=== PATIENT | female | born 1950 | race Two or more races ===

== ENCOUNTER 2020-03-02 02:48 | Emergency (ER) | payer MEDICAID, MEDICARE, OTHER ==
[~2020-03-02] VITALS: Ht 160 cm; Wt 68.0 kg
[~2020-03-02 02:48] MED LIST: CYCL5TAB PO; ENAL5TAB PO; EST0625T PO; HYDR25TA4 PO; IBUP600T27 PO; METF-370 PO; METO25TA93 PO; NOR10T PO; SERT-160 PO
[2020-03-02 03:41] LABS: Basophils # (auto) 0 10 ^3/uL (0-0.2); Basophils % (auto) 0.4 % (0.0-2.0); Eosinophils # (auto) 0.2 10 ^3/uL (0-0.8); Eosinophils % (auto) 2.3 % (0.0-7.0); Hematocrit 38.3 % (36.0-46.0); Hemoglobin 13.1 g/dL (12.2-16.2); Lymphocytes # (auto) 3.1 10 ^3/uL (0.4-5.4); Mean Corpuscular Hemoglobin 30.6 pg (28.0-32.0); Mean Corpuscular Hgb Conc. 34.1 g/dL (32.0-36.0); Mean Corpuscular Volume 89.7 fL (80.0-100.0); Monocytes # (auto) 0.5 10 ^3/uL (0-1.3); Monocytes % (auto) 5.3 % (0.0-12.0); Neutrophils # (auto) 6.4 10 ^3/uL (1.6-8.6); Nucleated Red Blood Cells % 0.1 %; Platelet Count (auto) 241 10^3/uL (140-450); Red Blood Cells 4.27 10^6/uL (4.0-5.20); White Blood Cell 10.4 10^3/uL (4.4-10.8)
[2020-03-02 03:50] LABS: Albumin 3.5 g/dL (3.4-5.0); Anion Gap 8 (5-15); BUN/Creatinine Ratio 17.1; Blood Urea Nitrogen 19 mg/dL (7-18); Calcium 8.6 mg/dL (8.5-10.1); Carbon Dioxide 24 mmol/L (21-32); Chloride 106 mmol/L (98-107); GFR African American 63 mL/min; GFR Non-African American 52 mL/min; Glucose 192 mg/dL (74-106); Potassium 4.3 mmol/L (3.5-5.1); Sodium 138 mmol/L (136-145)
[2020-03-02 03:55] LABS: Alanine Aminotransferase 17 U/L (13-56); Alkaline Phosphatase 67 U/L (45-117); Aspartate Aminotransferase 10 U/L (15-37); Bilirubin, Total 0.5 mg/dL (0.2-1.0); Total Protein 7.6 g/dL (6.4-8.2)
[2020-03-02 06:40] VITALS: BP 136/77
== END 2020-03-02 06:42 | disposition home or self-care (01) ==
LOC: ER 02:48 → EDBD 02:48 → ER 06:42
DX: R00.2 Palpitations (principal); E11.9 Type 2 diabetes mellitus without complications; I10 Essential (primary) hypertension; Z90.710 Acquired absence of both cervix and uterus; Z90.49 Acquired absence of other specified parts of digestive tract; Z86.73 Personal history of transient ischemic attack (TIA), and cerebral infarction without residual deficits
CPT/HCPCS: 36415; 71045; 80053; 83880; 84484; 85025; 93005

== ENCOUNTER 2021-01-23 23:13 | Emergency (ER) | payer OTHER, MEDICAID ==
[~2021-01-23] VITALS: Ht 147.3 cm; Wt 65.8 kg
[~2021-01-23 23:13] MED LIST changes: -ENAL5TAB PO; +ENAL5TAB10 PO
[2021-01-23] MEDS ORDERED: METOPROLOL SUCCINATE XL 50 MG TAB PO ONE (23:45)
[2021-01-23] MEDS ORDERED: ENALAPRIL MALEATE 10 MG TAB PO ONE (23:45)
[2021-01-24 02:39] LABS: Albumin 3.8 g/dL (3.4-5.0); Anion Gap 9 (5-15); Blood Urea Nitrogen 27 mg/dL (7-18); Calcium 8.9 mg/dL (8.5-10.1); Carbon Dioxide 20 mmol/L (21-32); Chloride 108 mmol/L (98-107); Glucose 142 mg/dL (74-106); Magnesium 1.9 mg/dL (1.6-2.6); Potassium 3.8 mmol/L (3.5-5.1); Sodium 137 mmol/L (136-145)
[2021-01-24 02:42] LABS: BUN/Creatinine Ratio 22.3; GFR African American 57 mL/min; GFR Non-African American 47 mL/min
[2021-01-24 02:46] LABS: Alanine Aminotransferase 17 U/L (13-56); Alkaline Phosphatase 54 U/L (45-117); Aspartate Aminotransferase 14 U/L (15-37); Bilirubin, Total 0.6 mg/dL (0.2-1.0); Total Protein 7.7 g/dL (6.4-8.2)
[2021-01-24 04:03] LABS: Basophils # (auto) 0 10 ^3/uL (0-0.2); Basophils % (auto) 0.5 % (0.0-2.0); Eosinophils # (auto) 0.2 10 ^3/uL (0-0.8); Hematocrit 38.5 % (36.0-46.0); Hemoglobin 13.1 g/dL (12.2-16.2); Lymphocytes # (auto) 2.7 10 ^3/uL (0.4-5.4); Lymphocytes % (auto) 30.3 % (10.0-50.0); Mean Corpuscular Hemoglobin 30.9 pg (28.0-32.0); Monocytes # (auto) 0.6 10 ^3/uL (0-1.3); Monocytes % (auto) 6.3 % (0.0-12.0); Neutrophils # (auto) 5.4 10 ^3/uL (1.6-8.6); Neutrophils % (auto) 60.9 % (37.0-80.0); Nucleated Red Blood Cells % 0.2 %; Platelet Count (auto) 190 10^3/uL (140-450); Red Blood Cells 4.24 10^6/uL (4.0-5.20); Red Cell Distribution Width 13.2 % (11.8-14.3); White Blood Cell 8.9 10^3/uL (4.4-10.8)
[2021-01-24] MEDS ORDERED: cloNIDine HCL 0.1 MG TAB PO ONE (05:15)
[2021-01-24 06:49] VITALS: BP 155/64
== END 2021-01-24 07:03 | disposition home or self-care (01) ==
LOC: EDBD 23:13 → ER 23:13 → EDUNIT# 23:13 → ER 01-24 07:03
DX: S51.812A Laceration without foreign body of left forearm, initial encounter (principal); E11.9 Type 2 diabetes mellitus without complications; I10 Essential (primary) hypertension; Z79.899 Other long term (current) drug therapy; Z79.84 Long term (current) use of oral hypoglycemic drugs; Z86.73 Personal history of transient ischemic attack (TIA), and cerebral infarction without residual deficits; Z90.49 Acquired absence of other specified parts of digestive tract; Z90.710 Acquired absence of both cervix and uterus; Z98.890 Other specified postprocedural states; W23.0XXA Caught, crushed, jammed, or pinched between moving objects, initial encounter; Y93.89 Activity, other specified; Y92.89 Other specified places as the place of occurrence of the external cause; Y99.8 Other external cause status
CPT/HCPCS: 12004; 36415; 71045; 80053; 83735; 83880; 84484; 85025; 93005

== ENCOUNTER 2022-12-22 11:35 | Emergency (ER) | payer OTHER, MEDICAID ==
[~2022-12-22 11:35] MED LIST changes: +CYCL-837 PO; -CYCL5TAB PO
[2022-12-22 12:01] LABS: Basophils # (auto) 0.1 10 ^3/uL (0-0.2); Basophils % (auto) 0.9 % (0.0-2.0); Eosinophils # (auto) 0.2 10 ^3/uL (0-0.8); Hematocrit 40.3 % (36.0-46.0); Hemoglobin 13.5 g/dL (12.2-16.2); Lymphocytes # (auto) 2.3 10 ^3/uL (0.4-5.4); Lymphocytes % (auto) 30.3 % (10.0-50.0); Mean Corpuscular Hemoglobin 29.8 pg (28.0-32.0); Mean Corpuscular Hgb Conc. 33.6 g/dL (32.0-36.0); Mean Corpuscular Volume 88.7 fL (80.0-100.0); Monocytes # (auto) 0.4 10 ^3/uL (0-1.3); Monocytes % (auto) 4.9 % (0.0-12.0); Neutrophils # (auto) 4.7 10 ^3/uL (1.6-8.6); Neutrophils % (auto) 60.9 % (37.0-80.0); Nucleated Red Blood Cells % 0.1 %; Red Blood Cells 4.54 10^6/uL (4.0-5.20); Red Cell Distribution Width 13.1 % (11.8-14.3); White Blood Cell 7.6 10^3/uL (4.4-10.8)
[2022-12-22 12:19] LABS: Albumin 4.2 g/dL (3.4-5.0); Calcium 9.7 mg/dL (8.5-10.1); Magnesium 2.1 mg/dL (1.6-2.6); Potassium 4.8 mmol/L (3.5-5.1)
[2022-12-22 12:22] LABS: BUN/Creatinine Ratio 26.2 (10.0-20.0); Bilirubin, Total 0.7 mg/dL (0.2-1.0); Total Protein 7.9 g/dL (6.4-8.2)
[2022-12-22 12:42] LABS: INR 0.95 (0.9-1.15); Partial Thromboplastin Time 25.1 sec (24.6-33.4)
[2022-12-22 12:50] LABS: Urine Bacteria NONE SEEN /hpf (None Seen); Urine Blood Negative /uL (Negative); Urine Mucus FEW (None Seen); Urine Specific Gravity 1.023 (1.001-1.035); Urine WBC 1 /hpf (0 - 5)
[2022-12-22] MEDS ORDERED: MECL25CH38 PO (13:50)
[2022-12-22 15:44] VITALS: BP 152/99
== END 2022-12-22 15:55 | disposition home or self-care (01) ==
LOC: ER 11:35
DX: R42 Dizziness and giddiness (principal); R07.89 Other chest pain; E11.22 Type 2 diabetes mellitus with diabetic chronic kidney disease; I12.9 Hypertensive chronic kidney disease with stage 1 through stage 4 chronic kidney disease, or unspecified chronic kidney disease; N18.9 Chronic kidney disease, unspecified; Z90.49 Acquired absence of other specified parts of digestive tract; Z90.710 Acquired absence of both cervix and uterus; Z86.73 Personal history of transient ischemic attack (TIA), and cerebral infarction without residual deficits
CPT/HCPCS: 36415; 71045; 80053; 81001; 83735; 83880; 84484; 85025; 85610; 85730; 93005

== ENCOUNTER 2023-04-19 06:57 | Emergency (ER) | payer OTHER, MEDICAID ==
[~2023-04-19] VITALS: Ht 165.1 cm; Wt 77.3 kg
[~2023-04-19 06:57] MED LIST changes: -ENAL5TAB10 PO; +ENAL5TAB22 PO; +IBUP-1454 PO; -IBUP600T27 PO; +MECL25CH38 PO
[2023-04-19] MEDS ORDERED: cloNIDine HCL 0.1 MG TAB PO ONE (07:15)
[2023-04-19 07:34] LABS: Basophils # (auto) 0 10 ^3/uL (0-0.2); Basophils % (auto) 0.5 % (0.0-2.0); Eosinophils # (auto) 0.2 10 ^3/uL (0-0.8); Eosinophils % (auto) 2.9 % (0.0-7.0); Hematocrit 35.5 % (36.0-46.0); Hemoglobin 12.1 g/dL (12.2-16.2); Lymphocytes # (auto) 2.8 10 ^3/uL (0.4-5.4); Lymphocytes % (auto) 34.7 % (10.0-50.0); Mean Corpuscular Hemoglobin 29.7 pg (28.0-32.0); Mean Corpuscular Volume 87.4 fL (80.0-100.0); Monocytes # (auto) 0.5 10 ^3/uL (0-1.3); Monocytes % (auto) 6.2 % (0.0-12.0); Neutrophils # (auto) 4.5 10 ^3/uL (1.6-8.6); Neutrophils % (auto) 55.7 % (37.0-80.0); Red Blood Cells 4.06 10^6/uL (4.0-5.20); Red Cell Distribution Width 12.9 % (11.8-14.3)
[2023-04-19 08:28] LABS: Alanine Aminotransferase 12 U/L (7-40); Albumin 4.2 g/dL (3.2-4.8); Alkaline Phosphatase 51 U/L (46-116); Anion Gap 9.7 (5-15); Aspartate Aminotransferase 9 U/L (13-40); BUN/Creatinine Ratio 15.5 (10.0-20.0); Blood Urea Nitrogen 16 mg/dL (9-23); Carbon Dioxide 19.3 mmol/L (20-30); Chloride 107 mmol/L (98-107); Glucose 198 mg/dL (74-106); Potassium 4.1 mmol/L (3.5-5.1); Sodium 136 mmol/L (136-145)
[2023-04-19 08:29] LABS: Bilirubin, Total 0.5 mg/dL (0.2-1.0); Total Protein 6.9 g/dL (5.7-8.2)
[2023-04-19 10:32] VITALS: BP 161/69; PULSE 61; RESP 16; O2SAT 100
== END 2023-04-19 10:39 | disposition home or self-care (01) ==
LOC: ER 06:57 → EDBD 06:57 → ER 10:39
DX: I10 Essential (primary) hypertension (principal); I12.9 Hypertensive chronic kidney disease with stage 1 through stage 4 chronic kidney disease, or unspecified chronic kidney disease; E11.22 Type 2 diabetes mellitus with diabetic chronic kidney disease; N18.9 Chronic kidney disease, unspecified; Z79.899 Other long term (current) drug therapy; Z79.84 Long term (current) use of oral hypoglycemic drugs; Z86.73 Personal history of transient ischemic attack (TIA), and cerebral infarction without residual deficits; Z90.49 Acquired absence of other specified parts of digestive tract; Z98.890 Other specified postprocedural states; Z90.710 Acquired absence of both cervix and uterus
CPT/HCPCS: 36415; 71045; 80053; 84484; 85025; 93005

== ENCOUNTER 2024-06-19 07:11 | Emergency (ER) | payer OTHER, MEDICAID ==
[~2024-06-19] VITALS: Ht 147.3 cm; Wt 64.5 kg
[2024-06-19 08:16] VITALS: PULSE 102; RESP 16; O2SAT 97
[2024-06-19 09:10] LABS: Basophils # (auto) 0 10 ^3/uL (0-0.2); Basophils % (auto) 0.4 % (0.0-2.0); Eosinophils # (auto) 0.2 10 ^3/uL (0-0.8); Eosinophils % (auto) 3.4 % (0.0-7.0); Hemoglobin 12.9 g/dL (12.2-16.2); Lymphocytes # (auto) 1.9 10 ^3/uL (0.4-5.4); Lymphocytes % (auto) 28.5 % (10.0-50.0); Mean Corpuscular Hemoglobin 29.6 pg (28.0-32.0); Mean Corpuscular Hgb Conc. 33.1 g/dL (32.0-36.0); Mean Corpuscular Volume 89.3 fL (80.0-100.0); Monocytes # (auto) 0.4 10 ^3/uL (0-1.3); Monocytes % (auto) 5.8 % (0.0-12.0); Neutrophils # (auto) 4.1 10 ^3/uL (1.6-8.6); Neutrophils % (auto) 61.9 % (37.0-80.0); Platelet Count (auto) 210 10^3/uL (140-450); Red Blood Cells 4.36 10^6/uL (4.0-5.20); Red Cell Distribution Width 13.3 % (11.8-14.3); White Blood Cell 6.6 10^3/uL (4.4-10.8)
[2024-06-19 09:13] LABS: Chloride 108 mmol/L (98-107); Potassium 4.5 mmol/L (3.5-5.1); Sodium 140 mmol/L (136-145)
[2024-06-19 09:14] LABS: Anion Gap 8 (5-15); Calcium 9.9 mg/dL (8.7-10.4); Carbon Dioxide 24 mmol/L (20-31)
[2024-06-19 09:19] LABS: BUN/Creatinine Ratio 14.7 (10.0-20.0); Blood Urea Nitrogen 16 mg/dL (9-23); Glucose 166 mg/dL (74-106)
[2024-06-19 10:47] LABS: COVID19 ANTIGEN SOFIA FIA NEGATIVE (NEGATIVE)
[2024-06-19 12:38] VITALS: BP 159/74; PULSE 91; RESP 16; TEMP 98.4; O2SAT 99
== END 2024-06-19 12:48 | disposition home or self-care (01) ==
LOC: ER 07:11
DX: R05.9 Cough, unspecified (principal); R06.02 Shortness of breath; R13.10 Dysphagia, unspecified; E03.9 Hypothyroidism, unspecified; K21.9 Gastro-esophageal reflux disease without esophagitis; I12.9 Hypertensive chronic kidney disease with stage 1 through stage 4 chronic kidney disease, or unspecified chronic kidney disease; E11.22 Type 2 diabetes mellitus with diabetic chronic kidney disease; N18.9 Chronic kidney disease, unspecified; Z90.49 Acquired absence of other specified parts of digestive tract; Z90.89 Acquired absence of other organs; Z90.710 Acquired absence of both cervix and uterus; Z79.899 Other long term (current) drug therapy; Z86.73 Personal history of transient ischemic attack (TIA), and cerebral infarction without residual deficits; Z20.822 Contact with and (suspected) exposure to COVID-19
CPT/HCPCS: 36415; 71046; 80048; 83880; 84484; 85025; 87426; 93005